=== PATIENT | male | born 2000 | race Caucasian/White ===

== ENCOUNTER → 2023-06-20 14:25 | Outpatient (REF) | payer OTHER, SELFPAY ==
[2023-06-20 16:13] LABS: Rubella Positive
[2023-06-20 16:36] LABS: Hepatitis B Surface Antibody Positive
== END ==
LOC: OHS 14:25
PROVIDERS: ATTENDING PHYSICIAN Nurse Practitioner Family
DX: Z23 Encounter for immunization (principal)
CPT/HCPCS: 36415; 86706; 86735; 86762; 86765; 86787

== ENCOUNTER → 2023-08-06 11:55 | Outpatient (REF) | payer OTHER, SELFPAY ==
[2023-08-07 15:51] LABS: Rubeola (Measles) IgG Positive; Varicella Zoster IgG (VZV) Positive
== END ==
LOC: OHS 11:55
PROVIDERS: ATTENDING PHYSICIAN Nurse Practitioner Family
DX: Z23 Encounter for immunization (principal)
CPT/HCPCS: 86765; 86787